=== PATIENT | female | born 1990 | race Caucasian/White ===

== ENCOUNTER → 2020-04-29 09:26 | Outpatient (CLI) | payer BC, SELFPAY ==
[2020-04-29 09:44] LABS: Basophils # 0.3 K/mm3 (0-0.2); Basophils % 2.1 % (0.1-2.0); Eosinophils # 0.4 K/mm3 (0.0-0.4); Eosinophils % 2.9 % (0.1-12.0); Hematocrit 46.9 % (37.0-47.0); Hemoglobin 14.2 g/dL (12.2-16.2); Lymphocytes # 3.3 K/mm3 (0.7-4.5); Lymphocytes % 26.3 % (10-50); Mean Corpuscular HGB Conc 30.2 g/dL (31.8-35.4); Mean Corpuscular Hemoglobin 29.7 pg (27.0-31.2); Mean Corpuscular Volume 98.4 fl (81-99); Mean Platelet Volume 11.3 fl (7.4-10.4); Monocytes # 0.6 K/mm3 (0.1-1.0); Neutrophils # 8.2 K/mm3 (1.8-7.8); Neutrophils % 65.7 % (37.0-80.0); Platelet Count 317 K/mm3 (142-424); Red Blood Count 4.77 M/mm3 (4.20-5.40); Red Cell Distribution Width 19.6 % (11.5-17.5); White Blood Count 12.5 K/mm3 (4.8-10.8)
== END ==
PROVIDERS: Visit Provider Nurse Practitioner Obstetrics & Gynecology
DX: R10.2 Pelvic and perineal pain (principal)
CPT/HCPCS: 36415; 85025

== ENCOUNTER → 2020-05-04 15:37 | Outpatient (CLI) | payer BC, SELFPAY ==
--- NOTE | 2020-05-04 15:38 | US_ITS ---
PROCEDURE: US TRANSVAGINAL CLINICAL INDICATION: possible ovarian cyst COMPARISON: No exams were available for comparison FINDINGS: UTERUS: 8cm x 5cmx 4cm with an IUD present which appears to be in proper position. Cannot adequately evaluate the endometrial thickness secondary to artifact from the IUD. The endometrium does not appear thickened. LEFT OVARY: [id number] with a volume of 6.2ml. RIGHT OVARY: [id number] with a volume of 7.2ml. There is a 2.5 x 1.5 cm cyst involving right ovary which appears represent a simple cyst. IMPRESSION: IUD in place with small right ovarian cyst Dictated by: Contreras Jean Baptiste MD 05/04/2020 17:25 Electronically signed by Contreras Jean Baptiste MD in [place] 05/04/2020 17:25
== END ==
PROVIDERS: PCP Emergency Medicine; Visit Provider Nurse Practitioner Obstetrics & Gynecology
DX: N83.209 Unspecified ovarian cyst, unspecified side (principal); R10.31 Right lower quadrant pain
CPT/HCPCS: 76830

== ENCOUNTER → 2020-06-04 12:45 | Outpatient (CLI) | payer BC, SELFPAY ==
[2020-06-04 13:13] LABS: Basophils % 0.5 % (0.1-2.0); Eosinophils # 0.3 K/mm3 (0.0-0.4); Eosinophils % 2.8 % (0.1-12.0); Hematocrit 41.4 % (37.0-47.0); Hemoglobin 13.4 g/dL (12.2-16.2); Lymphocytes # 2.6 K/mm3 (0.7-4.5); Lymphocytes % 28.3 % (10-50); Mean Corpuscular HGB Conc 32.3 g/dL (31.8-35.4); Mean Corpuscular Hemoglobin 29.6 pg (27.0-31.2); Mean Corpuscular Volume 91.6 fl (81-99); Mean Platelet Volume 8.4 fl (7.4-10.4); Monocytes # 0.4 K/mm3 (0.1-1.0); Monocytes % 4.5 % (1.7-9.3); Neutrophils # 5.9 K/mm3 (1.8-7.8); Neutrophils % 63.9 % (37.0-80.0); Platelet Count 302 K/mm3 (142-424); Red Blood Count 4.52 M/mm3 (4.20-5.40); Red Cell Distribution Width 12.8 % (11.5-17.5); White Blood Count 9.2 K/mm3 (4.8-10.8)
[2020-06-04 13:26] LABS: Chloride 108 mmol/L (98-107); Potassium 4.2 mmoL/L (3.5-5.1); Sodium 129 mmol/L (136-145)
[2020-06-04 13:29] LABS: Anion Gap 2.2 mEq/L (5-15); Blood Urea Nitrogen 15 mg/dl (7-17); Calcium 9.4 mg/dl (8.4-10.2); Carbon Dioxide 23 mmol/L (22.0-30.0); Estimated Glomerular Filt Rate 118 ml/min (>60); GFR (African American) 143 ML/MIN (>60); Glucose 111 mg/dl (74-100); HCG Qualitative, Serum Negative (Negative)
[2020-06-04 13:47] LABS: Coronavirus 19 IgG Antibody Negative (Negative); Coronavirus 19 IgM Antibody Negative (Negative)
== END ==
PROVIDERS: Visit Provider Nurse Practitioner Obstetrics & Gynecology
DX: Z01.818 Encounter for other preprocedural examination (principal); R10.2 Pelvic and perineal pain
CPT/HCPCS: 36415; 80048; 84703; 85025; 86328

== ENCOUNTER 2020-06-05 06:16 | Day surgery (SDC) | payer BC, SELFPAY ==
[2020-06-02 13:29] VITALS: BMI 40.1
[2020-06-05] VITALS (15 sets, daily range): BP systolic 98–117; BP diastolic 56–76; PULSE 55–96; RESP 14–21; TEMP 35.9–43; O2SAT 91–96
--- NOTE | 2020-06-05 07:51 | HMH.ANESCL ---
[facility] Anesthesia Checklist - Patient Identification Patient Identification: Arm Band - Structural Data Admitted From: Home Planned Operative Procedure/s: laparoscopic appendectomy Consent for Planned Operative Procedure(s) Verified: Yes Verified Documents: Surgical Consent, History and Physical - NPO Status Verified Time NPO: 00:00 - Additional verifications Anesthesia Reactions: No Hx Blood Transfusions: No Blood Transfusion Reaction: No - Airway Assessment C-Spine Mobility Assessed: Yes (mp2) TMJ Mobility Assessed: Yes Dentition: Poor Dentition - Neurological Assessment Level of Consciousness: Awake, Alert - Anesthesia Plan Anesthesia Risk discussed: Yes Anesthesia Plan: Verified ASA Class: II Anesthesia Type: General [facility] History Medical History: Denies:: Cancer, Diabetes Mellitus Type 1, Diabetes Mellitus Type 2, MRSA, Seizures *Have you ever received a pneumonia vaccine?: No *Have you received a flu vaccine this season?: No Other Medical History: Denies: Blood Transfusion Reaction Anesthesia experience/problems:: nac Other Surgeries: Yes: Other Amputation: No Fractures: No - *Social History Last grade of school completed: High school graduate Smoking Status: Current every day smoker Tobacco Type: e-cigarettes # Packs/Day (cigarettes): 1 Alcohol Intake: current Alcohol Intake Frequency:: holidays/special occasions only Substance Use Type: denies use *Occupational Status:: employed *Travel in the last 8 weeks: None Family Hx:: No significant family history
--- NOTE | 2020-06-05 08:21 | HMH.OPNOTE ---
Date of procedure: 06/05/20 Pre-op Diagnosis:: Right lower quadrant pain, McBurney's point pain Post-op Diagnosis:: Right lower quadrant pain, McBurney's point pain, possible endometriosis Procedure performed:: Laparoscopic appendectomy, resection of endometriosis Surgeon:: Francisco Dinh MD COMMUNICATION SKILLS INSTRUCTOR:: Sam Parker Anesthesia: GETA Estimated blood loss (mL): 25 Clinical Note:: She is a 29-year-old lady who complains of severe right lower quadrant pain. She had a CT scan that was normal and did not show appendicitis. She did have point tenderness over McBurney's point. Since she continued to have right lower quadrant tenderness despite a course of antibiotics and anti-inflammatories, we offered her laparoscopic appendectomy along with diagnostic laparoscopy. The risks and benefits of surgery discussed with the patient prior to surgery. Operative findings:: She had a normal-appearing appendix although it was somewhat stiff and plump. Otherwise it appeared normal. There were adhesions of epiploica to the left pelvic sidewall. There was an area of scar tissue in the deep right pelvic sidewall possibly consistent with old endometriosis. There was no active endometriosis seen. The upper abdomen and rest of the pelvis appeared normal the tubes and ovaries appeared normal. Operative note:: She was taken the operating room where general anesthesia was found to be adequate. She was prepped and draped in normal sterile fashion in the semilithotomy position. A weighted speculum was placed in vagina and the anterior lip of the cervix was grasped with a tenaculum. She had a Mirena IUD so I used an acorn uterine manipulator. I then changed gloves and injected 10 cc of 0.25% ropivacaine around the umbilicus. I made a small incision within the umbilicus and inserted a Veress needle into the abdominal cavity. The abdominal cavity was then insufflated with carbon oxide gas to pressure of 20 mmHg. I then inserted a 12 mm trocar under direct vision. I injected through and through the hairline. I inserted a 5 mm trocar here under direct vision. I then identified the inferior epigastric arteries on the left side, went lateral to these and injected through and through. I placed a 5 mm trocar here under direct vision. The findings were as previous dictated. The appendix was then grasped with an Endo Tianna and using harmonic scalpel I cut along the mesoappendix to the base of the appendix. I then changed cameras and placed the 5 mm camera in the suprapubic port. I placed an Endo scopic stapler through the umbilical port and clamped across the base of the appendix. Everything was clear and the stapler was fired. This freed up the appendix. The appendix was then placed in an Endo Catch bag and removed through the umbilical port. I then changed back to the 11 mm camera. After once again assuring hemostasis at the base of the appendix I then turned my attention to the deep pelvis. On the left side there was adhesions of epiploica to the left pelvic sidewall. There was no active endometriosis seen here. On the right pelvic sidewall and the deep pelvis below the uterosacral ligament there was an area of scar tissue possibly consistent with old endometriosis. Using a [place] retractor I tented up this area and then using endoscopic scissors I remove this area of peritoneum. I assured hemostasis and elected to place a 1/2 piece of Surgicel in the deep pelvis on the right side overlying this defect. I also placed the rest of the Surgicel over the base of the appendix. After once again assuring hemostasis we let the gas out of the abdomen and hemostasis was once again assured. We then reinsufflated the abdominal cavity and injected approximately 30 cc of 0.25% ropivacaine into the pelvis. The secondary trochars were then removed under direct vision. The primary trocar and camera were removed together after letting the gas out of the abdomen. No bowel was
--- NOTE | 2020-06-05 08:28 | HMH.ANESI ---
[facility] Anesthesia Record Part I Intake, IV Amount: 1,200 Estimated blood loss (mL): 25 Urine output (mL): 100 Blood Pressure: 117/71 SaO2: 95 Pulse Rate: 90 Respiratory Rate: 16 Temperature: 98.1 F Patient is:: Drowsy, Stable Stable to PACU at:: 08:25
--- NOTE | 2020-06-05 10:43 | HMH.ANESII ---
[facility] Anesthesia Record Part II Discharge Time: 08:55 Destination: [facility] PACU nurse assessment reviewed?: Yes Patient Condition:: Good Anesthesia Complications:: None Swallowing reflex intact?: Yes Cyanosis?: No Blood Pressure: 113/76 Pulse Rate: 74 Temperature: 96.6 F Mental Status: Alert & Oriented Pain level:: 3 Nausea and/or vomitting:: None Intake, IV Amount: 1,000
== END 2020-06-05 09:48 | disposition home or self-care (01) ==
PROVIDERS: PCP Emergency Medicine; Visit Provider Nurse Practitioner Obstetrics & Gynecology
PROC: 0DTJ4ZZ Resection of Appendix, Percutaneous Endoscopic Approach (ICD-10-PCS; CPT 44970; principal; 2020-06-05 07:30)
DX: K66.0 Peritoneal adhesions (postprocedural) (postinfection) (principal); N85.8 Other specified noninflammatory disorders of uterus; Z79.899 Other long term (current) drug therapy; Z79.3 Long term (current) use of hormonal contraceptives; Z72.0 Tobacco use
CPT/HCPCS: 44970; 58662; 96374; J2405; J2710

== ENCOUNTER 2020-09-16 12:43 | Emergency (ER) | payer BC, SELFPAY ==
[2020-09-16 12:51] VITALS: BP 121/82; PULSE 74; RESP 20; TEMP 36.7; O2SAT 98; BMI 42.0
--- NOTE | 2020-09-16 12:55 | HMH.EDUTC ---
[facility] [place] Clinical Impression: Bronchitis Sinusitis Qualifiers: Sinusitis location: unspecified location Chronicity: unspecified Qualified Code(s): J32.9 - Chronic sinusitis, unspecified Disposition: Home, Self-Care Condition on Discharge: Good Instructions: Sinusitis, Sinus Headache, DI for Sinusitis, Acute Bronchitis Additional Instructions: ? Start antibiotic today. Be sure to complete entire prescription even if feeling better ? Monitor temp. Tylenol every 4 hours as needed and / or ibuprofen every 6 hours as needed ( As long as your primary care physician has told you that it ok to take both. For fever/aches/pains ER if no less than 101 despite Tylenol or Motrin ? Humidifier/vaporizer or hot steamy shower ? Inhaler every 4-6 hours as needed like we discussed. If unsure how to use it, ask pharmacist to demonstrate how. Should help open airways and improve cough, wheezing, and shortness of breath ? Mucinex during the day for your cough and cough suppressant only at night. Be sure to drink lots of water. Insurance may not cover a prescriptions for mucinex. Might be cheaper to get 400mg tablets and take 2 tablet in the morning, mid-day and evening with lots of water. *Start steroid today. Helps with inflammation therefore, cough and wheezing. Follow directions on the package. Reviewed side effects. Patient reports taking them before. Follow up IMMEDIATELY for new or worsening of symptoms OR no noticeable improvement over the next 48-72 hours. 911 immediately for any life threatening symptoms such as chest pain or difficulty breathing Prescriptions: Albuterol Sulfate [Proventil-HFA 90mcg/puff Inh] 1 - 2 puffs IH Q4HP PRN #1 inh PRN Reason: Shortness Of Breath Transmission Status: Pending to [facility] methylPREDNISolone [Medrol] 4 mg PO DIRECTED #21 pack Transmission Status: Pending to [facility] Azithromycin [Z-Carlos 250mg Tab] 250 mg PO DIRECTED #6 tab Transmission Status: Pending to [facility] Referrals: Jose Joshua MD [Primary Care Provider] - As needed Time of Disposition: 13:06 Medical Decision Making - Michael Inquiry Pt receiving controlled substance: No Michael was queried for this patient: No Vital Signs: 09/16/20 12:51 Temperature 98.1 F Temperature Source Oral Pulse Rate [Radial] 74 Respiratory Rate 20 Blood Pressure [Right Arm] 121/82 Blood Pressure Mean [Right Arm] 95 Blood Pressure Source [Right Arm] Automatic Cuff Blood Pressure Position [Right Arm] Sitting 02 Sat by Pulse Oximetry 98 Oxygen Delivery Method Room Air [facility] [place] - General Stated complaint: soa Time Seen by Provider: 09/16/20 12:55 Mode of Arrival: Ambulatory Source of Information: Patient Limitations: No Limitations Description of Symptoms (Recalled from Triage Doc. by RN): runny nose, SOB, bronchitis HEENT Symptoms (Recalled from RN notes): Yes Resp Symptoms (Recalled from RN notes): No Skin Symptoms (Recalled from RN notes): No MS Symptoms (Recalled from RN notes): No Functional Status (Recalled from RN notes): wnl - History of Present Illness Provider Complaint: Patient state that she is an everyday smoker States that she gets bronchitis and sinusitis around this time every year State that she has been seen by her PCP and tested for COVID and it came back negative States that today her drainage from her nose is yellowish green and feels like it is moving into her chest like it did when she had bronchitis so she come back in - Related Data Home Medications Medication Instructions Recorded Confirmed levonorgestrel 20 mcg/24 hours (6 1 mcg INTRAUTERI WEEKLY 04/29/20 08/13/20 yrs) 52 mg intrauterine device hydroxyzine HCl 50 mg tablet 50 mg PO tab 08/13/20 08/13/20 ondansetron 8 mg disintegrating 8 mg PO tab 08/13/20 08/13/20 tablet promethazine-DM 6.25 mg-15 mg/5 mL 5 ml PO ml 08/13/20 08/13/20 oral syrup Previous Rx's Medication Instructions Re
[2020-09-16 13:23] VITALS: BP 121/82; PULSE 74; RESP 20; TEMP 36.7; O2SAT 98
== END 2020-09-16 13:24 | disposition home or self-care (01) ==
PROVIDERS: Emergency Provider Nurse Practitioner; PCP Emergency Medicine
DX: J20.9 Acute bronchitis, unspecified (principal); J32.9 Chronic sinusitis, unspecified; F17.210 Nicotine dependence, cigarettes, uncomplicated
CPT/HCPCS: 99201

== ENCOUNTER 2020-10-08 17:58 | Emergency (ER) | payer OTHER, SELFPAY ==
[2020-10-08 18:17] VITALS: BP 130/83; PULSE 105; RESP 16; TEMP 36.7; O2SAT 99; BMI 39.4
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
--- NOTE | 2020-10-08 18:23 | PC.NURSE ---
Pt taken to restroom at this time.
[2020-10-08 19:03] VITALS: BP 128/77; PULSE 75; O2SAT 99
[2020-10-08 19:07] LABS: Microscopic, Urine URINE MICROSCOPIC (MICROSCOPIC)
[2020-10-08 19:09] LABS: Appearance,Urine CLEAR (Clear); Bilirubin,Urine Negative (Negative); Blood, Urine Negative (Negative); Color,Urine YELLOW (Yellow); Glucose,Urine (UA) Negative (Negative); Ketones,Urine Negative (Negative); Leukocyte Esterase,Urine Negative (Negative); Nitrate,Urine Negative (Negative); Protein,Urine Negative (Negative); Specific Gravity, Urine 1.015 (1.005-1.030); Urobilinogen,Urine 0.2 EU/dl (0.2)
[2020-10-08 19:11] LABS: Urine Pregnancy, HCG Qual. Negative (Negative)
[2020-10-08 19:12] LABS: Basophils # 0.1 K/mm3 (0-0.2); Basophils % 0.8 % (0.1-2.0); Eosinophils # 0.2 K/mm3 (0.0-0.4); Eosinophils % 2.1 % (0.1-12.0); Hematocrit 46.2 % (37.0-47.0); Hemoglobin 14.5 g/dL (12.2-16.2); Lymphocytes # 2.3 K/mm3 (0.7-4.5); Lymphocytes % 21.7 % (10-50); Mean Corpuscular HGB Conc 31.3 g/dL (31.8-35.4); Mean Corpuscular Volume 89.3 fl (81-99); Mean Platelet Volume 7.8 fl (7.4-10.4); Monocytes # 0.5 K/mm3 (0.1-1.0); Monocytes % 4.8 % (1.7-9.3); Neutrophils # 7.4 K/mm3 (1.8-7.8); Neutrophils % 70.7 % (37.0-80.0); Platelet Count 353 K/mm3 (142-424); Red Blood Count 5.17 M/mm3 (4.20-5.40); Red Cell Distribution Width 12.5 % (11.5-17.5); White Blood Count 10.5 K/mm3 (4.8-10.8)
[2020-10-08 19:16] LABS: Chloride 105 mmol/L (98-107); Sodium 138 mmol/L (136-145)
[2020-10-08 19:17] LABS: Potassium 3.6 mmoL/L (3.5-5.1)
[2020-10-08 19:19] LABS: Alanine Aminotransferase 20 U/L (12-78); Albumin Level 4.5 g/dl (3.5-5.0); Albumin/Globulin Ratio 1.2 (1.1-1.8); Alkaline Phosphatase 78 U/L (38-126); Anion Gap 10.6 mEq/L (5-15); Aspartate Amino Transferase 28 U/L (14-36); Bilirubin,Total 0.4 mg/dl (0.2-1.3); Blood Urea Nitrogen 10 mg/dl (7-17); Carbon Dioxide 26 mmol/L (22.0-30.0); Creatinine Clearance Estimated 141 mL/min (50-200); Estimated Glomerular Filt Rate 74 ml/min (>60); GFR (African American) 89 ML/MIN (>60); Globulin 3.7 g/dL (1.3-3.2); Total Protein,Serum 8.2 g/dl (6.3-8.2)
[2020-10-08 19:20] LABS: Calcium 9.5 mg/dl (8.4-10.2); Glucose 124 mg/dl (74-100)
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
[2020-10-08 21:57] VITALS: BP 125/65; PULSE 72; RESP 16; TEMP 36.6; O2SAT 99
== END 2020-10-08 21:25 | disposition home or self-care (01) ==
PROVIDERS: Emergency Provider Emergency Medicine; PCP Emergency Medicine
DX: S39.012A Strain of muscle, fascia and tendon of lower back, initial encounter (principal); V49.50XA Passenger injured in collision with unspecified motor vehicles in traffic accident, initial encounter; N83.8 Other noninflammatory disorders of ovary, fallopian tube and broad ligament
CPT/HCPCS: 72110; 74177; 80053; 81001; 81025; 85025; 96374; 99283; Q9967

== ENCOUNTER 2020-11-02 11:00 | Outpatient (RCR) | payer OTHER, SELFPAY | END 2020-11-02 11:05 | disposition home or self-care (01) | LOC: PT 11:00 | PROVIDERS: Visit Provider Nurse Practitioner Family | DX: V49.50XA Passenger injured in collision with unspecified motor vehicles in traffic accident, initial encounter; M54.5 Low back pain | CPT/HCPCS: 97010; 97014; 97110; 97163; G0283 ==

== ENCOUNTER 2020-12-06 17:42 | Emergency (ER) | payer OTHER, SELFPAY ==
[2020-12-06 17:43] VITALS: BP 125/71; PULSE 86; RESP 20; TEMP 36.9; O2SAT 99; BMI 40.7
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
[2020-12-06 18:37] VITALS: BP 114/70; PULSE 79; RESP 16; TEMP 36.9; O2SAT 96
== END 2020-12-06 18:38 | disposition home or self-care (01) ==
PROVIDERS: Emergency Provider Emergency Medicine; PCP Nurse Practitioner Family
DX: M25.551 Pain in right hip (principal); F17.210 Nicotine dependence, cigarettes, uncomplicated; V49.50XD Passenger injured in collision with unspecified motor vehicles in traffic accident, subsequent encounter
CPT/HCPCS: 99281

== ENCOUNTER 2021-02-01 17:48 | Emergency (ER) | payer BC, SELFPAY ==
[2021-02-01 18:04] VITALS: BP 121/74; PULSE 79; RESP 19; TEMP 36.8; O2SAT 100; BMI 41.1
[2021-02-01 18:11] VITALS: BP 118/70; PULSE 75; RESP 16; TEMP 36.6
--- NOTE | 2021-02-01 18:25 | HMH.EDUTC ---
[facility] [place] Disposition Clinical Impression: Viral syndrome, Exposure to COVID-19 virus, Bronchitis Disposition: Home, Self-Care Condition on Discharge: Good Instructions: Preventing the Spread of Coronavirus Discharge Instructions Additional Instructions: Drink plenty of fluids. Take tylenol or ibuprofen for pain or fever. Take the medications as directed. Follow up with your regular doctor. GO TO THE ER FOR ANY WORSENING SYMPTOMS FOLLOW THE DIRECTIONS ON THE COVID-19 HAND OUT THAT WE GAVE YOU REGARDING SELF-ISOLATION UNTIL YOU KNOW YOUR COVID-19 RESULTS Prescriptions: Brompheniramine/Pseudoephed/Dm [Bromfed Dm Cough Syrup] 5 ml PO Q6HP PRN #240 syrup PRN Reason: Cough Transmission Status: Received by [facility] [employer] Ondansetron [Zofran 4mg ODT] 4 mg PO Q8HP PRN #12 tab.rapdis PRN Reason: Nausea Transmission Status: Received by [facility] Azithromycin [Z-Carlos 250mg Tab*] 250 mg PO UD DOSE PK #6 tab Transmission Status: [facility] by [facility] Referrals: Matthew Keith MD [Primary Care Provider] - Forms: Work/School Release Time of Disposition: 18:30 Medical Decision Making - Medical Records Medical records reviewed: No: I reviewed the patient's medical records. - Michael Inquiry Pt receiving controlled substance: No Vital Signs: 02/01/21 18:04 02/01/21 18:11 Temperature 98.2 F 98 F Temperature Source Oral Pulse Rate 75 Pulse Rate [Right] 79 Respiratory Rate 19 16 Blood Pressure 118/70 Blood Pressure [Right Arm] 121/74 Blood Pressure Mean [Right Arm] 89 02 Sat by Pulse Oximetry 100 [facility] [place] HPI - General Stated complaint: V&D angelina Dr Gonzalez Time Seen by Provider: 02/01/21 18:25 Mode of Arrival: Ambulatory Source of Information: Patient Limitations: No Limitations Description of Symptoms (Recalled from Triage Doc. by RN): pt ate a chicken salad sandwhich that made her have n/v/d. she is feeling better and has very little nausea now, but work wanted her to come in bc she missed days. HEENT Symptoms (Recalled from RN notes): No Resp Symptoms (Recalled from RN notes): No Skin Symptoms (Recalled from RN notes): No MS Symptoms (Recalled from RN notes): No Functional Status (Recalled from RN notes): na - History of Present Illness Provider Complaint: She states that since yesterday she has had n/v/d. She has also been having sinus congestion and a cough. - Related Data Previous Rx's Medication Instructions Recorded naproxen 500 mg tablet 500 mg PO BID #30 tab 10/16/20 prednisone 20 mg tablet 20 mg PO BID 5 Days #10 tab 10/16/20 Cyclobenzaprine HCl [Flexeril 10mg 5 mg PO Q8HP PRN 7 Days #12 tab 12/06/20 tablet] Azithromycin [Z-Carlos 250mg Tab*] 250 mg PO UD DOSE PK #6 tab 02/01/21 Brompheniramine/Pseudoephed/Dm 5 ml PO Q6HP PRN #240 syrup 02/01/21 [Bromfed Dm Cough Syrup] Ondansetron [Zofran 4mg ODT] 4 mg PO Q8HP PRN #12 tab.rapdis 02/01/21 Allergies Allergy/AdvReac Type Severity Reaction Status Date / Time No Known Allergies Allergy Verified 02/01/21 18:08 - Worker's Comp Is this a Worker's Comp case?: No [facility] History - Hepatitis A Screen Drug use history?: No High risk sexual behaviors?: No History of sexually transmitted infection?: No Currently employed?: No Childcare worker?: No Do you have indoor plumbing?: Yes Do you have electricity?: Yes Attestation statement:: This patient has been screened for Hepatitis A risk factors. I have reviewed the patient's past medical history: Yes Medical History: Reports:: Cancer Denies:: Diabetes Mellitus Type 1, Diabetes Mellitus Type 2, MRSA, Seizures Other Medical History: Denies: Blood Transfusion Reaction Other Surgeries: Yes: Appendectomy, Other Amputation: No Fractures: No Comment: Laser (Rectal ) - Social History Smoking Status: Current every day smoker Tobacco Type: cigarettes # Packs/Day (cigarettes): 1 Alcohol Intake: current Alcohol Intake Freque
== END 2021-02-01 18:36 | disposition home or self-care (01) ==
PROVIDERS: Emergency Provider Nurse Practitioner Family; PCP Internal Medicine Adolescent Medicine
DX: Z20.822 Contact with and (suspected) exposure to COVID-19 (principal); B34.9 Viral infection, unspecified; J20.9 Acute bronchitis, unspecified; F17.210 Nicotine dependence, cigarettes, uncomplicated
CPT/HCPCS: 99202; G0463; U0003

== ENCOUNTER 2021-02-21 18:22 | Emergency (ER) | payer BC, SELFPAY ==
[2021-02-21 18:43] VITALS: BP 118/81; PULSE 71; RESP 19; TEMP 37; O2SAT 100; BMI 40.2
--- NOTE | 2021-02-21 18:50 | HMH.EDUTC ---
[facility] [place] Disposition Clinical Impression: Gastroenteritis Disposition: Home, Self-Care Condition on Discharge: Good Instructions: DI for Viral Gastroenteritis -- Adult Additional Instructions: Your COVID19 tests should be back tomorrow morning Referrals: Davon Marks APRN [Primary Care Provider] - Time of Disposition: 18:54 Medical Decision Making - Michael Inquiry Pt receiving controlled substance: No Vital Signs: 02/21/21 18:43 Temperature 98.6 F Temperature Source Oral Pulse Rate [Left] 71 Respiratory Rate 19 Blood Pressure [Right Arm] 118/81 Blood Pressure Mean [Right Arm] 93 Blood Pressure Source [Right Arm] Automatic Cuff Blood Pressure Position [Right Arm] Sitting 02 Sat by Pulse Oximetry 100 Oxygen Delivery Method Room Air [facility] [place] HPI - General Stated complaint: covid test Time Seen by Provider: 02/21/21 18:52 Mode of Arrival: Ambulatory Source of Information: Patient Limitations: No Limitations Description of Symptoms (Recalled from Triage Doc. by RN): Covid test to return to work HEENT Symptoms (Recalled from RN notes): No Resp Symptoms (Recalled from RN notes): No Skin Symptoms (Recalled from RN notes): No MS Symptoms (Recalled from RN notes): No Functional Status (Recalled from RN notes): wnl - History of Present Illness Provider Complaint: Patient sent home from work 4 days ago with vomiting and diarrhea. Had had a fever a few days before that. Needs negative COVID test to return to work. Symptoms have resolved X 2 days. Onset (ago): day(s) (4) Relieving factors: none Exacerbating factors: none Associated symptoms: denies other symptoms Treatments prior to arrival: none - Related Data Previous Rx's Medication Instructions Recorded naproxen 500 mg tablet 500 mg PO BID #30 tab 10/16/20 prednisone 20 mg tablet 20 mg PO BID 5 Days #10 tab 10/16/20 Cyclobenzaprine HCl [Flexeril 10mg 5 mg PO Q8HP PRN 7 Days #12 tab 12/06/20 tablet] Azithromycin [Z-Carlos 250mg Tab*] 250 mg PO UD DOSE PK #6 tab 02/01/21 Brompheniramine/Pseudoephed/Dm 5 ml PO Q6HP PRN #240 syrup 02/01/21 [Bromfed Dm Cough Syrup] Ondansetron [Zofran 4mg ODT] 4 mg PO Q8HP PRN #12 tab.rapdis 02/01/21 Allergies Allergy/AdvReac Type Severity Reaction Status Date / Time No Known Allergies Allergy Verified 02/01/21 18:08 - Worker's Comp Is this a Worker's Comp case?: No [facility] History - Hepatitis A Screen Drug use history?: No High risk sexual behaviors?: No History of sexually transmitted infection?: No Currently employed?: No Childcare worker?: No Do you have indoor plumbing?: Yes Do you have electricity?: Yes Attestation statement:: This patient has been screened for Hepatitis A risk factors. I have reviewed the patient's past medical history: Yes Medical History: Reports:: Cancer Denies:: Diabetes Mellitus Type 1, Diabetes Mellitus Type 2, MRSA, Seizures Other Medical History: Denies: Blood Transfusion Reaction Other Surgeries: Yes: Appendectomy, Other Amputation: No Fractures: No Comment: Laser (Rectal ) - Social History Smoking Status: Current every day smoker Tobacco Type: cigarettes # Packs/Day (cigarettes): 1 Alcohol Intake: never Alcohol Intake Frequency:: a few times a month Substance Use Type: denies use Occupational Status: employed Family Hx:: No significant family history Comment: Pt has Mirena ROS Obtained: Yes All systems reviewed & no additional complaints Physical Exam - General General appearance: alert, in no apparent distress - Head Head exam: normocephalic - Eye Eye exam: Present: PERRL - ENT ENT exam: Present: normal oropharynx - Respiratory Respiratory exam: Present: normal lung sounds bilaterally - Cardiovascular Cardiovascular exam: Present: regular rate, normal rhythm - Neurological Exam Neurological exam: Present: alert, oriented X3 - Psychiatric Psychiatric exam: Present: normal affect, normal mood - Skin Skin exam: Present: warm,
[2021-02-21 19:13] VITALS: BP 118/81; PULSE 71; RESP 19; TEMP 37; O2SAT 100
== END 2021-02-21 19:14 | disposition home or self-care (01) ==
PROVIDERS: Emergency Provider Physician Assistant; PCP Nurse Practitioner Family
DX: Z20.822 Contact with and (suspected) exposure to COVID-19 (principal); K52.9 Noninfective gastroenteritis and colitis, unspecified
CPT/HCPCS: 99202; G0463; U0003

== ENCOUNTER → 2021-07-22 19:53 | Outpatient (CLI) | payer BC, SELFPAY ==
[2021-07-25 09:18] LABS: HSV 1 IgG, Type Spec >62.20 index (0.00-0.90); HSV 2 IgG, Type Spec <0.91 index (0.00-0.90)
== END ==
PROVIDERS: Visit Provider Nurse Practitioner Family
DX: B00.9 Herpesviral infection, unspecified (principal)
CPT/HCPCS: 86695; 86696; 86790

== ENCOUNTER → 2021-08-31 18:04 | Outpatient (CLI) | payer BC, SELFPAY | PROVIDERS: Visit Provider Nurse Practitioner Family | DX: R10.30 Lower abdominal pain, unspecified (principal) | CPT/HCPCS: 87086 ==

== ENCOUNTER 2021-09-01 00:44 | Emergency (ER) | payer BC, SELFPAY ==
[2021-09-01 00:45] VITALS: BP 139/73; PULSE 84; RESP 18; TEMP 37.2; O2SAT 98; BMI 40.2
--- NOTE | 2021-09-01 00:57 | HMH.EDABDPAI ---
ED Disposition Clinical Impression: Abdominal pain Qualifiers: Abdominal location: lower abdomen, unspecified Qualified Code(s): R10.30 - Lower abdominal pain, unspecified Disposition: Home, Self-Care Condition on Discharge: Fair Instructions: DI for Acute Abdominal Pain Additional Instructions: Take [id number] Tylenol and Motrin as needed. Keep all follow-up appointments as scheduled. Return to the emergency department if you feel worse in any way. Prescriptions: Dicyclomine HCl [Bentyl 10mg capsule] 10 mg PO QID #30 cap Transmission Status: Pending to [id number] Referrals: Davon Marks APRN [Primary Care Provider] - - Critical Care Critical Care Time: No Attestation: On , the high probability of a clinically significant, sudden or life threatening deterioration of the following system(s) required my full and direct attention, intervention and personal management. The time I documented below is in addition to time spent performing reported procedures but includes the following listed in this critical care notation. Medical Decision Making - Medical Records Medical records reviewed: Yes: I reviewed the patient's medical records. - Michael Inquiry Pt receiving controlled substance: No Vital Signs: 09/01/21 00:45 Temperature 98.9 F Temperature Source Oral Pulse Rate [Apical] 84 Respiratory Rate 18 Blood Pressure [Right Arm] 139/73 Blood Pressure Mean [Right Arm] 95 Blood Pressure Source [Right Arm] Automatic Cuff Blood Pressure Position [Right Arm] Sitting 02 Sat by Pulse Oximetry 98 Oxygen Delivery Method Room Air - Lab Data Lab results reviewed: Yes: I reviewed the patient's lab results. Lab Results 09/01/21 00:52: Urine Color Yellow, Urine Appearance Clear, Urine pH 6.0, Ur Specific [place] >= 1.030, Urine Protein Negative, Urine Glucose (UA) Negative, Urine Ketones Negative, Urine Blood Negative, Urine Nitrate Negative, Urine Bilirubin Negative, Urine Urobilinogen 0.2, Ur Leukocyte Esterase Negative, Urine WBC Occasional, Urine Bacteria Trace 09/01/21 01:30: WBC 13.2 H, RBC 4.46, Hgb 13.0, Hct 42.6, MCV 95.5, MCH 29.1, MCHC 30.5 L, RDW 12.9, Plt Count 313, MPV 8.0, Neut % (Auto) 66.8, Lymph % (Auto) 26.4, [place] % (Auto) 5.0, Eos % (Auto) 1.4, Baso % (Auto) 0.5, Neut # (Auto) 8.8 H, Lymph # (Auto) 3.5, [place] # (Auto) 0.7, Eos # (Auto) 0.2, Baso # (Auto) 0.1 09/01/21 01:30: Sodium 141, Potassium 3.9, Chloride 107, Carbon Dioxide 28, Anion Gap 9.9, BUN 11, Creatinine 0.60, Estimated Creat Clear 214, Estimated GFR 117, Est GFR ( Amer) 141, Glucose 99, Calcium 9.2, Total Bilirubin 0.1 L, AST 23, ALT 17, Alkaline Phosphatase 73, Total Protein 6.9, Albumin 3.7, Globulin 3.2, Albumin/Globulin Ratio 1.2, Lipase 55 09/01/21 01:30: Serum HCG, Qual Negative Result diagrams: 09/01/21 01:30 09/01/21 01:30 Orders (Tests/Meds): ED MEDICATIONS Discontinued Medications Generic Name Dose Route Start Last Admin Trade Name Freq PRN Reason Stop Dose Admin Dicyclomine HCl 20 mg 09/01/21 01:05 09/01/21 01:10 Dicyclomine 20 Mg/2ml Vial IM 09/01/21 01:06 Not Given ONCE ONE Dicyclomine HCl 20 mg 09/01/21 01:08 09/01/21 01:12 Dicyclomine 20 Mg/2ml Vial IM 09/01/21 01:09 20 mg ONCE ONE Administration Medical Decision Narrative: The patient symptoms improved after Bentyl. The patient's work-up in the emergency department and not reveal any life-threatening or dangerous causes for the patient's symptoms. The laboratory work-up was essentially unremarkable with the exception of a mildly elevated white blood cell count. An elevated white blood cell count is a nonspecific finding. The patient has not had any fever. She does not have a left shift. Do not feel that the patient requires emergent imaging at this time. The diagnosis of appendicitis is low on the differential diagnosis at this time. 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
[2021-09-01 01:09] LABS: Appearance,Urine CLEAR (Clear); Bilirubin,Urine Negative (Negative); Blood, Urine Negative (Negative); Color,Urine YELLOW (Yellow); Glucose,Urine (UA) Negative (Negative); Ketones,Urine Negative (Negative); Leukocyte Esterase,Urine Negative (Negative); Microscopic, Urine URINE MICROSCOPIC (MICROSCOPIC); Nitrate,Urine Negative (Negative); Protein,Urine Negative (Negative); Specific Gravity, Urine >= 1.030 (1.005-1.030); Urobilinogen,Urine 0.2 EU/dl (0.2)
[2021-09-01 01:22] LABS: Bacteria,Urine Trace /lpf; WBC,Urine Occasional #/hpf (0-3)
[2021-09-01 01:35] LABS: Basophils # 0.1 K/mm3 (0-0.2); Basophils % 0.5 % (0.1-2.0); Eosinophils # 0.2 K/mm3 (0.0-0.4); Eosinophils % 1.4 % (0.1-12.0); Hematocrit 42.6 % (37.0-47.0); Lymphocytes # 3.5 K/mm3 (0.7-4.5); Lymphocytes % 26.4 % (10-50); Mean Corpuscular HGB Conc 30.5 g/dL (31.8-35.4); Mean Corpuscular Hemoglobin 29.1 pg (27.0-31.2); Mean Corpuscular Volume 95.5 fl (81-99); Monocytes # 0.7 K/mm3 (0.1-1.0); Neutrophils # 8.8 K/mm3 (1.8-7.8); Neutrophils % 66.8 % (37.0-80.0); Platelet Count 313 K/mm3 (142-424); Red Blood Count 4.46 M/mm3 (4.20-5.40); Red Cell Distribution Width 12.9 % (11.5-17.5); White Blood Count 13.2 K/mm3 (4.8-10.8)
[2021-09-01 01:40] LABS: Chloride 107 mmol/L (98-107); Potassium 3.9 mmoL/L (3.5-5.1); Sodium 141 mmol/L (136-145)
[2021-09-01 01:42] LABS: Alanine Aminotransferase 17 U/L (12-78); Alkaline Phosphatase 73 U/L (38-126); Aspartate Amino Transferase 23 U/L (14-36); Blood Urea Nitrogen 11 mg/dl (7-17); Creatinine Clearance Estimated 214 mL/min (50-200); Estimated Glomerular Filt Rate 117 ml/min (>60); GFR (African American) 141 ML/MIN (>60)
[2021-09-01 01:43] LABS: Albumin Level 3.7 g/dl (3.5-5.0); Albumin/Globulin Ratio 1.2 (1.1-1.8); Anion Gap 9.9 mEq/L (5-15); Calcium 9.2 mg/dl (8.4-10.2); Carbon Dioxide 28 mmol/L (22.0-30.0); Globulin 3.2 g/dL (1.3-3.2); Glucose 99 mg/dl (74-100); Lipase 55 U/L (23-300); Total Protein,Serum 6.9 g/dl (6.3-8.2)
[2021-09-01 01:45] LABS: HCG Qualitative, Serum Negative (Negative)
[2021-09-01 01:51] LABS: Bilirubin,Total 0.1 mg/dl (0.2-1.3)
[2021-09-01 02:14] VITALS: BP 139/73; PULSE 87; RESP 14; TEMP 37.2; O2SAT 98
== END 2021-09-01 02:21 | disposition home or self-care (01) ==
PROVIDERS: Emergency Provider Emergency Medicine; PCP Nurse Practitioner Family
DX: R10.30 Lower abdominal pain, unspecified (principal); F17.210 Nicotine dependence, cigarettes, uncomplicated
CPT/HCPCS: 80053; 81001; 83690; 84703; 85025; 99281

== ENCOUNTER → 2021-09-06 16:51 | Outpatient (CLI) | payer BC, SELFPAY ==
[2021-09-09 05:17] LABS: Neisseria gonorrhoeae, NAA Negative (Negative)
== END ==
PROVIDERS: Visit Provider Nurse Practitioner Obstetrics & Gynecology
DX: Z72.51 High risk heterosexual behavior (principal)
CPT/HCPCS: 87491; 87591

== ENCOUNTER → 2021-09-10 14:56 | Outpatient (CLI) | payer BC, SELFPAY ==
--- NOTE | 2021-09-10 14:57 | US_ITS ---
PROCEDURE: US TRANSVAGINAL CLINICAL INDICATION: pelvic pain COMPARISON: No exams were available for comparison FINDINGS: No pelvic mass or abnormal fluid collection. The uterus and ovaries have an unremarkable appearance. The uterus is 8 x 4 x 5 cm. Right ovary is 2.2 cm in the left ovary is 3 2 cm. No cul-de-sac fluid apparent. IMPRESSION: Negative pelvic ultrasound Dictated by: Contreras Jean Baptiste MD 09/11/2021 08:09 Contreras Jean Baptiste MD in [place] 09/11/2021 08:09
== END ==
PROVIDERS: PCP Nurse Practitioner Family; Visit Provider Nurse Practitioner Obstetrics & Gynecology
DX: R10.2 Pelvic and perineal pain (principal)
CPT/HCPCS: 76830

== ENCOUNTER → 2021-11-18 10:35 | Outpatient (CLI) | payer BC, SELFPAY ==
--- NOTE | 2021-11-18 10:35 | MR_ITS ---
FINAL REPORT CLINICAL HISTORY: Low back pain, left sided sciatica. FINDINGS: Multiplanar MR imaging of the lumbar spine was performed without contrast. On the sagittal T2-weighted images, disc degeneration is seen at L4-L5 and L5-S1. The vertebral alignment is normal. There is no evidence of fracture. No bony mass is identified. The conus has an unremarkable appearance. L1-2: There is no significant canal stenosis or neural foraminal narrowing. L2-3: There is no significant canal stenosis or neural foraminal narrowing. L3-4: There is no significant canal stenosis or neural foraminal narrowing. L4-5: An annular bulge is present. There is a broad-based right foraminal disc protrusion. There is mild right neural foraminal narrowing. L5-S1: There is a large central disc protrusion versus extrusion. There is bilateral lateral recess stenosis. There is bilateral S1 nerve root impingement. There is mild central canal stenosis with an AP thecal sac diameter of 8 mm. There is mild bilateral neural foraminal narrowing. IMPRESSION: Large central disc protrusion versus extrusion at L5-S1 results in bilateral lateral recess stenosis, bilateral S1 nerve root impingement , mild bilateral neural foraminal narrowing and mild central canal stenosis. Broad-based right foraminal disc protrusion at L4-L5 results in mild right neural foraminal narrowing. Reviewed, Interpreted and Dictated by Moreno Corbett III, MD Transcribed by Caesar Schmid Authenticated by Moreno Corbett III, MD on 11/18/2021 12:16:17 PM [facility]
== END ==
PROVIDERS: PCP Nurse Practitioner Family; Visit Provider Nurse Practitioner Family
DX: M54.50 Low back pain, unspecified (principal)
CPT/HCPCS: 72148; 76376

== ENCOUNTER → 2022-02-08 16:18 | Outpatient (CLI) | payer BC, SELFPAY ==
[2022-02-08 18:57] LABS: Basophils # 0.1 K/mm3 (0-0.2); Basophils % 0.8 % (0.1-2.0); Eosinophils # 0.2 K/mm3 (0.0-0.4); Eosinophils % 2.6 % (0.1-12.0); Hematocrit 43.6 % (37.0-47.0); Hemoglobin 13.8 g/dL (12.2-16.2); Lymphocytes # 2.1 K/mm3 (0.7-4.5); Lymphocytes % 23.6 % (10-50); Mean Corpuscular HGB Conc 31.7 g/dL (31.8-35.4); Mean Corpuscular Volume 94.7 fl (81-99); Mean Platelet Volume 9.4 fl (7.4-10.4); Monocytes # 0.5 K/mm3 (0.1-1.0); Monocytes % 5.7 % (1.7-9.3); Neutrophils # 5.9 K/mm3 (1.8-7.8); Neutrophils % 67.3 % (37.0-80.0); Platelet Count 368 K/mm3 (142-424); Red Blood Count 4.61 M/mm3 (4.20-5.40); Red Cell Distribution Width 12.9 % (11.5-17.5); White Blood Count 8.7 K/mm3 (4.8-10.8)
[2022-02-08 19:24] LABS: Microalbumin < 6.000 mg/L (0-16.7)
[2022-02-08 19:46] LABS: Chloride 108 mmol/L (98-107); Potassium 4.1 mmoL/L (3.5-5.1); Sodium 138 mmol/L (136-145)
[2022-02-08 19:48] LABS: Blood Urea Nitrogen 11 mg/dl (7-17); Estimated Glomerular Filt Rate 117 ml/min (>60); GFR (African American) 141 ML/MIN (>60)
[2022-02-08 19:49] LABS: Alanine Aminotransferase 17 U/L (12-78); Albumin Level 3.6 g/dl (3.5-5.0); Albumin/Globulin Ratio 1.2 (1.1-1.8); Alkaline Phosphatase 83 U/L (38-126); Anion Gap 9.1 mEq/L (5-15); Aspartate Amino Transferase 23 U/L (14-36); Bilirubin,Total 0.4 mg/dl (0.2-1.3); Calcium 8.5 mg/dl (8.4-10.2); Carbon Dioxide 25 mmol/L (22.0-30.0); Cholesterol 137 mg/dl (140-200); Globulin 2.9 g/dL (1.3-3.2); Glucose 79 mg/dl (74-100); Total Protein,Serum 6.5 g/dl (6.3-8.2); Triglycerides 127 mg/dl (30-150); VLDL Cholesterol 25 mg/dL (0-40)
[2022-02-08 19:50] LABS: Chol/HDL Ratio 3.5 (1-3.5); HDL Cholesterol 39 mg/dl (40-60)
[2022-02-08 20:01] LABS: Direct LDL Cholesterol 71.38 mg/dL (100-129)
[2022-02-08 20:06] LABS: T4 (Thyroxine) 8.9 ug/dl (5.53-11.0)
[2022-02-08 20:08] LABS: 25-OH Vitamin D, Total 15.4 ng/mL (30-100)
== END ==
PROVIDERS: Visit Provider Nurse Practitioner Family
DX: G47.00 Insomnia, unspecified (principal); G62.9 Polyneuropathy, unspecified; G25.81 Restless legs syndrome; E55.9 Vitamin D deficiency, unspecified; E66.9 Obesity, unspecified; Z68.41 Body mass index [BMI] 40.0-44.9, adult; Z72.0 Tobacco use
CPT/HCPCS: 80053; 80061; 82043; 82306; 83036; 84436; 84443; 85025

== ENCOUNTER → 2023-01-25 10:15 | Outpatient (CLI) | payer BC, SELFPAY ==
[2023-01-25 14:39] LABS: Basophils # 0.1 K/mm3 (0-0.2); Basophils % 0.7 % (0.1-2.0); Eosinophils # 0.2 K/mm3 (0.0-0.4); Hematocrit 46.5 % (37.0-47.0); Hemoglobin 14.5 g/dL (12.2-16.2); Lymphocytes % 33.4 % (10-50); Mean Corpuscular HGB Conc 31.2 g/dL (31.8-35.4); Mean Corpuscular Hemoglobin 28.7 pg (27.0-31.2); Mean Corpuscular Volume 91.9 fl (81-99); Mean Platelet Volume 8.8 fl (7.4-10.4); Monocytes # 0.5 K/mm3 (0.1-1.0); Monocytes % 5.7 % (1.7-9.3); Neutrophils # 5.3 K/mm3 (1.8-7.8); Neutrophils % 58.2 % (37.0-80.0); Platelet Count 422 K/mm3 (142-424); Red Blood Count 5.06 M/mm3 (4.20-5.40); Red Cell Distribution Width 13.4 % (11.5-17.5); White Blood Count 9.1 K/mm3 (4.8-10.8)
[2023-01-25 15:04] LABS: Alanine Aminotransferase 30 U/L (12-78); Albumin Level 3.8 g/dl (3.5-5.0); Albumin/Globulin Ratio 1.3 (1.1-1.8); Alkaline Phosphatase 88 U/L (38-126); Anion Gap 10.1 mEq/L (5-15); Aspartate Amino Transferase 30 U/L (14-36); Bilirubin,Total 0.5 mg/dl (0.2-1.3); Blood Urea Nitrogen 6 mg/dl (7-17); Calcium 8.8 mg/dl (8.4-10.2); Carbon Dioxide 22 mmol/L (22.0-30.0); Chloride 107 mmol/L (98-107); Estimated Glomerular Filt Rate 116 ml/min (>60); GFR (African American) 140 ML/MIN (>60); Globulin 2.9 g/dL (1.3-3.2); Glucose 114 mg/dl (74-100); Potassium 4.1 mmoL/L (3.5-5.1); Sodium 135 mmol/L (136-145); Total Protein,Serum 6.7 g/dl (6.3-8.2)
[2023-01-27 12:12] LABS: HIV Screen 4th Generation wRfx Non Reactive (Non Reactive)
[2023-01-28 02:09] LABS: ALT (SGPT) P5P 29 IU/L (0-40); Alpha 2-Macroglobulins, Qn 213 mg/dL (110-276); Apolipoprotein A-1 126 mg/dL (116-209); Bilirubin, Total 0.3 mg/dL (0.0-1.2); Fibrosis Score 0.09 (0.00-0.21); GGT 27 IU/L (0-60); Haptoglobin 189 mg/dL (33-278); Necroinflammat Activity Grade A0-No activity (.)
[2023-02-01 03:45] LABS: Hep A Ab, Total NEGATIVE; Hep B Core Ab, Total NEGATIVE; Hep B Surface Ab, Qual NEGATIVE; Hepatitis B Surface Antigen NEGATIVE; Hepatitis C Antibody REACTIVE
== END ==
PROVIDERS: PCP Nurse Practitioner Family; Visit Provider Nurse Practitioner Family
DX: B34.9 Viral infection, unspecified (principal); R10.9 Unspecified abdominal pain; Z11.4 Encounter for screening for human immunodeficiency virus [HIV]
CPT/HCPCS: 80053; 81596; 85025; 86703; 86704; 86706; 86708; 87340; 87380; 87522; G0432

== ENCOUNTER 2023-07-22 18:59 | Emergency (ER) | payer BC, SELFPAY ==
--- NOTE | 2023-07-22 19:12 | EXP.UTC ---
Discharge Plan Disposition Patient Disposition: Home, Self-Care Condition: Good Prescriptions Prescriptions: New azithromycin [Zithromax] 250 mg tablet 250 mg PO UD DOSE PK Qty: 6 0RF Rx Instructions: Take two (2) tablets today, then one (1) tablet days #2 thru #5 [id number]-[id number] [Bromfed DM] 2-30-10 mg/5 mL Syrup 5 ml PO Q6H PRN (Reason: Cough) Qty: 240 0RF ondansetron 4 mg Tablet,Disintegrating 4 mg PO Q8H PRN (Reason: Nausea) Qty: 12 0RF No Action Mirena 21 mcg/24 hours (8 yrs) 52 mg intrauterine device intrauterine clotrimazole 1 % cream 1 applic topical BID 14 Days Qty: 15 0RF prednisone 20 mg tablet 20 mg PO BID 5 Days Qty: 10 0RF naproxen 500 mg tablet 500 mg PO BID Qty: 30 0RF Referrals Follow up/Referrals: Davon Marks APRN [Primary Care Provider] - See instructions Activity Restrictions/Add. Instructions Additional Instructions/Restrictions: Drink plenty of fluids. Take tylenol or ibuprofen for pain or fever. Take the medications as directed. Follow up with your regular doctor. GO TO THE ER FOR ANY WORSENING SYMPTOMS Clinical Impressions Clinical Impression: Pharyngitis, Acute viral syndrome Stand Alone Forms Stand Alone Forms: Work/School Release Instructions Patient Instructions: DI for Viral Syndrome, Coronavirus Disease 2019, Preventing the Spread of Coronavirus Discharge Instructions Discharge ED Provider: Matthew Gracia [facility] General Stated complaint: Fever sore throat Time Seen by Provider: 07/22/23 19:12 History of Present Illness Provider Complaint: She states that for the past 2 days she has had body aches, sore throat, chills, and fever. she has had a nonproductive cough and nausea also. Related Data Home Medications Medication Instructions Recorded Confirmed levonorgestrel 21 mcg/24 hours (8 intrauterine 01/10/23 07/21/23 yrs) 52 mg intrauterine device (Mirena) Previous Rx's Medication Instructions Recorded clotrimazole 1 % topical cream 1 applic topical BID 2 weeks #15 01/10/23 grams naproxen 500 mg tablet 500 mg PO BID #30 tabs 09/22/23 prednisone 20 mg tablet 20 mg PO BID 5 days #10 tabs 07/21/23 azithromycin 250 mg tablet 250 mg PO UD DOSE PK #6 tabs 07/22/23 (Zithromax) pyhinytkyyrycna-lmggrhnthgfnetl-DB 5 ml PO Q6H PRN Cough #240 mL 07/22/23 2 mg-30 mg-10 mg/5 mL oral syrup (Bromfed DM) ondansetron 4 mg disintegrating 4 mg PO Q8H PRN Nausea #12 tabs 07/22/23 tablet Allergies Allergy/AdvReac Type Severity Reaction Status Date / Time No Known Allergies Allergy Verified 07/22/23 19:23 [facility] Disclaimer: The information contained in this section may have been updated after the patient was seen, as this information can be updated by other users. Social History Smoking Status: Current every day smoker tobacco type: cigarettes packs per day: 1 second hand exposure: No alcohol intake: never substance use type: denies use current occupational status: employed Travel in the last 8 weeks: None ROS Obtained: Yes All systems reviewed & no additional complaints except as documented Constitutional Constitutional: Reports chills and Reports fever(s) Eyes Eyes: Denies eye discharge ENT Ears, Nose, Mouth, and Throat: Reports as per HPI Cardiovascular Cardiovascular: Denies chest pain Respiratory Respiratory: Denies chest congestion and Reports cough Gastrointestinal Gastrointestingal: Reports nausea; Denies abdominal pain, constipation, cramping, diarrhea or vomiting Musculoskeletal Musculoskeletal: Denies arthralgias Integumentary/Breasts Skin/Breast: Denies rash Neurologic Neurologic: Denies paresthesias Physical Exam General General appearance: alert and in no apparent distress Head Head exam: atraumatic, normocephalic and normal inspection Eye Eye exam: Present normal appearance, PERR
[2023-07-22 19:15] VITALS: BP 139/83; PULSE 93; RESP 18; TEMP 37.2; O2SAT 95; BMI 44.0
[2023-07-22 19:30] LABS: UTC Influenza A Antigen Negative (Negative); UTC Strep Screen (Rapid) Negative (Negative)
[2023-07-22 19:31] LABS: UTC Influenza B Antigen Negative (Negative)
[2023-07-22 19:45] VITALS: BP 139/83; PULSE 97; RESP 18; TEMP 37.2; O2SAT 95
== END 2023-07-22 19:45 | disposition home or self-care (01) ==
PROVIDERS: Emergency Provider Nurse Practitioner Family; PCP Nurse Practitioner Family
DX: J02.9 Acute pharyngitis, unspecified (principal); B34.9 Viral infection, unspecified; F17.210 Nicotine dependence, cigarettes, uncomplicated
CPT/HCPCS: 87635; 87804; 87880; 99212; 99214; G0463

== ENCOUNTER 2023-08-19 18:23 | Emergency (ER) | payer BC, SELFPAY ==
[2023-08-19 18:24] VITALS: BP 131/81; PULSE 88; RESP 18; TEMP 36.6; O2SAT 99; BMI 43.9
--- NOTE | 2023-08-19 18:50 | CT_ITS ---
PROCEDURE INFORMATION: Exam: CT Abdomen And Pelvis With Contrast Exam date and time: 08/19/2023 7:48 PM Age: 33 years old Clinical indication: Abdominal pain; Periumbilical; Additional info: Periumbilical tenderness, diarrhea TECHNIQUE: Imaging protocol: Computed tomography of the abdomen and pelvis with contrast. Radiation optimization: All CT scans at this facility use at least one of these dose optimization techniques: automated exposure control; mA and/or kV adjustment per patient size (includes targeted exams where dose is matched to clinical indication); or iterative reconstruction. Contrast material: ISOVUE 370; Contrast volume: 75 ml; Contrast route: IV; REPORTING DATA: Count of CT and Cardiac NM exams in prior 12 months: This patient has received 0 known CTs and 0 known cardiac nuclear medicine studies in the 12 months prior to the current study. COMPARISON: CT ABDOMEN PELVIS W CON 10/08/2020 7:39 PM FINDINGS: Liver: Normal. No mass. Gallbladder and bile ducts: Normal. No calcified stones. No ductal dilation. Pancreas: Normal. No ductal dilation. Spleen: Normal. No splenomegaly. Adrenal glands: Normal. No mass. Kidneys and ureters: Normal. No hydronephrosis. Stomach and bowel: Unremarkable. No obstruction. No mucosal thickening. Appendix: Appendectomy Intraperitoneal space: Unremarkable. No free air. No significant fluid collection. Vasculature: Unremarkable. No abdominal aortic aneurysm. Lymph nodes: Unremarkable. No enlarged lymph nodes. Urinary bladder: Unremarkable as visualized. Reproductive: IUD. Bones/joints: Unremarkable. No acute fracture. Soft tissues: Unremarkable. IMPRESSION: No acute findings.
--- NOTE | 2023-08-19 18:51 | HMH.EDGENADL ---
Discharge Plan Disposition Patient Disposition: Home, Self-Care Prescriptions Prescriptions: New ondansetron 4 mg tablet,disintegrating 4 mg PO Q8H PRN (Reason: nausea and vomiting) 4 Days Qty: 12 0RF No Action Mirena 21 mcg/24 hours (8 yrs) 52 mg intrauterine device intrauterine clotrimazole 1 % cream 1 applic topical BID 14 Days Qty: 15 0RF prednisone 20 mg tablet 20 mg PO BID 5 Days Qty: 10 0RF naproxen 500 mg tablet 500 mg PO BID Qty: 30 0RF azithromycin [Zithromax] 250 mg tablet 250 mg PO UD DOSE PK Qty: 6 0RF Rx Instructions: Take two (2) tablets today, then one (1) tablet days #2 thru #5 [id number]-oeomojyla-NK [Bromfed DM] 2-30-10 mg/5 mL Syrup 5 ml PO Q6H PRN (Reason: Cough) Qty: 240 0RF ondansetron 4 mg Tablet,Disintegrating 4 mg PO Q8H PRN (Reason: Nausea) Qty: 12 0RF Referrals Follow up/Referrals: Davon Marks APRN [Primary Care Provider] - See instructions Activity Restrictions/Add. Instructions Additional Instructions/Restrictions: At this time it was felt you are safe to be discharged home. If new or worsening symptoms please do not hesitate to return the emergency department. If symptoms persist please follow-up with your family doctor as you are able. Please take your medications as prescribed. Clinical Impressions Clinical Impression: Abdominal pain, Diarrhea Discharge ED Provider: Jewel Fajardo General Adult HPI General Chief complaint: Abdominal Pain Stated complaint: vomiting,diarrhea , nausea Time Seen by Provider: 08/19/23 18:40 History of Present Illness HPI narrative: Patient is a 33-year-old female with no pertinent past medical history who presents emergency department for evaluation of abdominal pain, diarrhea, dark stools. Onset was acute, beginning . Pain was periumbilical in nature and has been unrelenting. No vomiting. Patient has taken Pepto-Bismol and stools have since turned black. Due to persistent symptoms she presents here for continued evaluation. No bright red blood per rectum. Patient has irregular periods with her Mirena. Abdominal surgical history of previous appendectomy. Related Data Home Medications Medication Instructions Recorded Confirmed levonorgestrel 21 mcg/24 hours (8 intrauterine 01/10/23 07/21/23 yrs) 52 mg intrauterine device (Mirena) Previous Rx's Medication Instructions Recorded clotrimazole 1 % topical cream 1 applic topical BID 2 weeks #15 01/10/23 grams naproxen 500 mg tablet 500 mg PO BID #30 tabs 07/21/23 prednisone 20 mg tablet 20 mg PO BID 5 days #10 tabs 07/21/23 azithromycin 250 mg tablet 250 mg PO UD DOSE PK #6 tabs 07/22/23 (Zithromax) [id number]-jpworvlxbftxroh-QE 5 ml PO Q6H PRN Cough #240 mL 07/22/23 2 mg-30 mg-10 mg/5 mL oral syrup (Bromfed DM) ondansetron 4 mg disintegrating 4 mg PO Q8H PRN Nausea #12 tabs 07/22/23 tablet ondansetron 4 mg disintegrating 4 mg PO Q8H PRN nausea and 08/19/23 tablet vomiting 4 days #12 tabs Allergies Allergy/AdvReac Type Severity Reaction Status Date / Time No Known Allergies Allergy Verified 07/22/23 19:23 [facility] Disclaimer: The information contained in this section may have been updated after the patient was seen, as this information can be updated by other users. Social History Smoking Status: Current every day smoker tobacco type: cigarettes packs per day: 1 second hand exposure: No alcohol intake: never substance use type: denies use current occupational status: employed Travel in the last 8 weeks: None ROS Obtained: Yes Systems reviewed as appropriate & no additional complaints except as documented Physical Exam General General appearance: alert and in no apparent distress Head Head exam: atraumatic and normocephalic Eye Eye exam: Present PERRL and EOMI ENT ENT exam: Present mucous membranes moist Ne
--- NOTE | 2023-08-19 18:59 | PC.NURSE ---
Rounded on pt. No needs voiced at this time. Call light within reach.
[2023-08-19 19:00] VITALS: BP 127/76; PULSE 86; RESP 16; O2SAT 98
[2023-08-19 19:03] LABS: Coronavirus 19, PCR Not Detected (NotDetected); Influenza A, PCR Not Detected (NotDetected); Influenza B, PCR Not Detected (NotDetected)
[2023-08-19 19:10] LABS: Basophils # 0.1 K/mm3 (0-0.2); Basophils % 0.4 % (0.1-2.0); Eosinophils # 0.3 K/mm3 (0.0-0.4); Eosinophils % 2.3 % (0.1-12.0); Hematocrit 45.4 % (37.0-47.0); Lymphocytes # 2.7 K/mm3 (0.7-4.5); Lymphocytes % 21.5 % (10-50); Mean Corpuscular Hemoglobin 30.1 pg (27.0-31.2); Mean Corpuscular Volume 91.1 fl (81-99); Mean Platelet Volume 7.9 fl (7.4-10.4); Monocytes # 0.5 K/mm3 (0.1-1.0); Monocytes % 3.8 % (1.7-9.3); Platelet Count 310 K/mm3 (142-424); Red Blood Count 4.98 M/mm3 (4.20-5.40); Red Cell Distribution Width 12.8 % (11.5-17.5); White Blood Count 12.5 K/mm3 (4.8-10.8)
[2023-08-19 19:19] LABS: Alanine Aminotransferase 42 U/L (12-78); Albumin Level 4.1 g/dl (3.5-5.0); Albumin/Globulin Ratio 1.2 (1.1-1.8); Alkaline Phosphatase 88 U/L (38-126); Anion Gap 12.5 mEq/L (5-15); Aspartate Amino Transferase 47 U/L (14-36); Bilirubin,Total 0.2 mg/dl (0.2-1.3); Blood Urea Nitrogen 12 mg/dl (7-17); Calcium 9.5 mg/dl (8.4-10.2); Carbon Dioxide 23 mmol/L (22.0-30.0); Chloride 106 mmol/L (98-107); Creatinine Clearance Estimated 90 mL/min (50-200); Estimated Glomerular Filt Rate 96 ml/min (>60); GFR (African American) 117 ML/MIN (>60); Globulin 3.4 g/dL (1.3-3.2); Glucose 93 mg/dl (74-100); Lipase 59 U/L (23-300); Potassium 4.5 mmoL/L (3.5-5.1); Sodium 137 mmol/L (136-145); Total Protein,Serum 7.5 g/dl (6.3-8.2)
[2023-08-19 19:22] LABS: HCG Qualitative, Serum Negative (Negative)
[2023-08-19 19:27] LABS: Appearance,Urine CLEAR (Clear); Bilirubin,Urine Negative (Negative); Blood, Urine Negative (Negative); Color,Urine YELLOW (Yellow); Glucose,Urine (UA) Negative (Negative); Ketones,Urine Negative (Negative); Leukocyte Esterase,Urine Negative (Negative); Microscopic, Urine URINE MICROSCOPIC (MICROSCOPIC); Nitrate,Urine Negative (Negative); Protein,Urine Negative (Negative); Urobilinogen,Urine 0.2 EU/dl (0.2)
[2023-08-19 19:30] VITALS: BP 125/77; PULSE 77; RESP 18; O2SAT 99
[2023-08-19 19:38] LABS: Bacteria,Urine Trace /lpf; WBC,Urine Occasional #/hpf (0-3)
--- NOTE | 2023-08-19 19:54 | PC.NURSE ---
Rounded on patient; warm blanket provided to patient. Nothing else needed at this time. Call light within reach
[2023-08-19 20:39] VITALS: BP 120/69; PULSE 75; RESP 18; TEMP 36.6; O2SAT 100
== END 2023-08-19 20:42 | disposition home or self-care (01) ==
PROVIDERS: Emergency Provider Emergency Medicine; PCP Nurse Practitioner Family
DX: R10.33 Periumbilical pain (principal); R19.7 Diarrhea, unspecified; F17.210 Nicotine dependence, cigarettes, uncomplicated
CPT/HCPCS: 74177; 80053; 81001; 83690; 84703; 85025; 87636; 96361; 96374; 96375; 99284; J0131; J2405; Q9967

== ENCOUNTER 2023-09-10 10:52 | Emergency (ER) | payer BC, SELFPAY ==
[2023-09-10 11:05] VITALS: BP 139/99; PULSE 104; RESP 22; TEMP 37; O2SAT 97; BMI 43.9
--- NOTE | 2023-09-10 11:26 | EXP.UTC ---
Discharge Plan Disposition Patient Disposition: Home, Self-Care Condition: Good Prescriptions Prescriptions: New prednisone [prednisone] 20 mg tablet 20 mg PO BID 5 Days Qty: 10 0RF cefdinir 300 mg capsule 300 mg PO BID Qty: 20 0RF guaifenesin [Mucinex] 600 mg tablet extended release 12hr 1,200 mg PO BID PRN (Reason: cough) Qty: 20 0RF albuterol sulfate [Proventil HFA] 90 mcg/actuation HFA aerosol inhaler 1 - 2 inh inhalation Q6H PRN (Reason: shortness of breath or wheezing) Qty: 8.5 0RF Referrals Follow up/Referrals: Davon Marks APRN [Primary Care Provider] - See instructions Activity Restrictions/Add. Instructions Additional Instructions/Restrictions: *Monitor Temp, Over the counter Motrin or Tylenol as directed/as needed Tylenol every 4 hours and Motrin every 6 hours (as long as your family doctor has told you that you can take it) for fever or pain. and straight to ER if unable to lower temp less than 101.0 after medication given *Warm salt water gargles may help to soothe the throat *Throat Lozenges? *Warm fluids like tea with honey may help to soothe the throat? *Sleep elevated *Humidifier/Vaporizer *Flonase 2 sprays in each nostril daily but be aware that it may take 2-3 days before you notice improvement *Bromfed may cause drowsiness. Know how it effects you (your child) before driving, caring for small child, or sending your child to school. Not other antihistamines/allergy medications while taking bromfed Your throat swab was sent for culture. Those results are typically sent to your primary care. Be sure to follow up in 2-3 days with your family doctor/primary care physician if no improvement so they can review those result and treat if necessary. If you don?t have a primary care doctor, I recommend you get one but in the mean time, you will have to return to a walk in clinic Follow up IMMEDIATELY for new or worsening symptoms or no Noticeable improvement over the next 48-72 hours. 911 for difficulty breathing or swallowing Clinical Impressions Clinical Impression: Bronchitis Sinusitis Qualifiers: Sinusitis location: unspecified location Chronicity: unspecified Qualified Code(s): J32.9 - Chronic sinusitis, unspecified Instructions Patient Instructions: Acute Bronchitis, DI for Sinusitis Discharge ED Provider: Mesha Sweet [facility] General Stated complaint: sore throat,cough Mode of Arrival: Ambulatory Source of Information: Patient Limitations: No Limitations Time Seen by Provider: 09/10/23 11:26 Description of Symptoms (Recalled from Triage Doc. by RN): PATIENT C/O COUGH AND WHEEZING X 3-4 DAYS HEENT Symptoms (Recalled from RN notes): No Resp Symptoms (Recalled from RN notes): Yes Skin Symptoms (Recalled from RN notes): No MS Symptoms (Recalled from RN notes): No Functional Status (Recalled from RN notes): WNL History of Present Illness Provider Complaint: Patient states that she has been having sore throat, cough, and felt like she has had some wheezing on and off States that she feels like she has had some drainage in the back of her throat that is trying to move into her chest or may have bronchitis so today she came in to get checked Related Data Previous Rx's Medication Instructions Recorded albuterol sulfate 90 mcg/actuation 1 - 2 inh inhalation Q6H PRN 09/10/23 aerosol inhaler (Proventil HFA) shortness of breath or wheezing #8.5 grams cefdinir 300 mg capsule 300 mg PO BID #20 caps 09/10/23 guaifenesin 600 mg tablet, 1,200 mg PO BID PRN cough #20 tabs 09/10/23 extended release 12 hr (Mucinex) prednisone 20 mg tablet 20 mg PO BID 5 days #10 tabs 09/10/23 Allergies Allergy/AdvReac Type Severity Reaction Status Date / Time No Known Allergies Allergy Verified 07/22/23 19:23 Worker's Comp Is this a Worker's Comp case?: No [facility] Disclaimer: The information contained in this section may have been update
[2023-09-10 11:38] LABS: UTC Strep Screen (Rapid) Negative (Negative)
[2023-09-10 11:49] VITALS: BP 139/99; PULSE 104; RESP 22; TEMP 37; O2SAT 97
== END 2023-09-10 11:53 | disposition home or self-care (01) ==
PROVIDERS: Emergency Provider Nurse Practitioner; PCP Nurse Practitioner Family
DX: J20.9 Acute bronchitis, unspecified (principal); J01.90 Acute sinusitis, unspecified; R07.0 Pain in throat; R06.2 Wheezing; R09.82 Postnasal drip; F17.210 Nicotine dependence, cigarettes, uncomplicated
CPT/HCPCS: 87880; 99212; 99214; G0463